=== PATIENT | male | born 1970 | race Caucasian/White ===

== ENCOUNTER 2021-02-12 10:49 | Day surgery (SDC) | payer OTHER ==
[~2021-02-12] VITALS: Ht 172.7 cm; Wt 100.8 kg
== END 2021-02-12 12:34 | disposition home or self-care (01) ==
LOC: ORSCSDS 10:49
PROVIDERS: Student in an Organized Health Care Education/Training Program
PROC: 0DJD8ZZ Inspection of Lower Intestinal Tract, Via Natural or Artificial Opening Endoscopic (ICD-10-PCS; principal; 2021-02-12 12:15)
DX: Z12.11 Encounter for screening for malignant neoplasm of colon (principal); K57.30 Diverticulosis of large intestine without perforation or abscess without bleeding
CPT/HCPCS: J2704; J7120